=== PATIENT | male | born 1955 | race Caucasian/White ===

== ENCOUNTER → 2017-05-17 | Outpatient (CLI) | payer BC ==
--- NOTE | 2017-05-17 15:50 | RAD ---
Examination: Ultrasound left lower quadrant abdominal wall History: History of left lower quadrant abdomen pain Comparison: None Findings: On the visualized images in the left lower quadrant of the abdomen in left groin region, there is a questionable small fat-containing LLQ abdominal wall hernia or inguinal hernia. Impression: Questionable small fat-containing LLQ abdominal wall hernia or inguinal hernia. If there is pain, cross-sectional imaging with CT can be considered.
== END | disposition home or self-care (01) ==
LOC: EDBD 14:00 → US 14:06
PROVIDERS: ATTEND Family Medicine
DX: R10.32 Left lower quadrant pain (principal)
CPT/HCPCS: 76705